=== PATIENT | male | born 1935 | race Caucasian/White ===

== ENCOUNTER 2017-01-07 14:00 | Inpatient (IN) | payer MEDICARE, OTHER ==
[~2017-01-07] VITALS: Ht 182.9 cm; Wt 96.3 kg
--- NOTE | ~2017-01-07 | DS ---
PATIENT'S NAME: SIMONE MAURO [facility] AGE: 81 Y [address] ROOM: [address] [place] [id number] LOCATION: GPCU ADMIT DATE: 01/09/2017 Discharge Summary DISCHARGE DATE: 01/27/2017 FAMILY PHYSICIAN: Anupam Cornejo PA-C ATTENDING PHYSICIAN: Montana Pederson HOSPITAL COURSE: The patient is an 81-year-old white male with recurrent right pleural effusion, status post multiple thoracentesis. He was sent to see Dr. Pederson in consultation by his primary care provider, Anupam Caruso, as well as his cadd instructor, Dr. Alston. The past cytology from the thoracentesis revealed no malignancy and showed the fluid to be of an exudative nature. The patient's history is for previous pulmonary emboli for which he is on anticoagulation and 2 recent bouts of pneumonia. The patient was evaluated in consultation for a possible pleurodesis. On 01/09/2017, the patient presented to the operative suite for a right thoracoscopy with a talc pleurodesis performed by Dr. Pederson. A chest tube was placed at the time of the surgical procedure and the patient transferred to the Progressive Care Floor following a short-stay in the PACU. Following day, the patient's chest tube was placed to water-seal as there was no air leak. His pain was controlled. He did develop an elevated white blood cell count, which is marked and therefore was initiated on an empiric antibiotic therapy, but 1st undergoing blood cultures x2, a UA and chest x-ray to investigate if there was no evidence of an active infection. The patient did improve overtime with the initiation of the antibiotic therapy and the white blood cell count did go back to normal. The patient also exhibited some mental status changes with some agitation and nonparticipatory behaviors. The patient worked with PT/OT; and also, with Speech Therapy. His progress was slow. He was started on some Risperdal. This dose was titrated as appropriate. The patient's head did start clearing quite a bit and he began doing things for himself, ambulating, and holding proper conversation. His calcium level however started bumping up and did reach a level of 13.1 on January 15. This level was repeated for accuracy and when found to be accurate we began a workup per the hypercalcemia protocol. A metastatic bone survey was also performed. This was negative. The patient was initiated on zoledronic acid IV to help decrease the calcium level. Over a couple of days, this decreased, and he was started on vitamin D3 800 units p.o. daily. His chest tube was placed to water-seal as the chest x-ray revealed no further pneumothorax. It was discontinued when the fluid levels were amenable. The patient had no pneumothorax noted on his final chest x-ray after the discontinuation of the chest tube. The patient and worked with [facility] for transfer upon his discharge. He will be under the care of his primary care provider, Anupam Caruso. The final workup for his hypercalcemia is not complete at the time of his discharge, but there is concerns for multiple myeloma versus humoral hypercalcemia of malignancy. PATIENT'S NAME: SIMONE MAURO [facility] AGE: 81 Y [address] ROOM: [place] [address] [facility] ADMIT DATE: 01/09/2017 Discharge Summary DISCHARGE DATE: 01/27/2017 FAMILY PHYSICIAN: Anupam Cornejo PA-C ATTENDING PHYSICIAN: Montana Pederson When the final results are back, we will contact Anupam Caruso with the information. The patient will likely need further workup from an Oncology perspective. The patient and verbalized understanding of this. Discharge was accomplished on January 27, 2017. The patient was to be admitted to the [facility]. ADMISSION DIAGNOSIS: Deconditioning, secondary to a right thoracoscopy with a talc pleurodesis, performed on 01/09/2017. SECONDARY DIAGNOSES: Include: 1. Hypercalcemia with unknown etiology with pending workup. 2. Postoperative confusion. 3. Hypertension. 4. Dyslipidemia. 5. Recurrent pleural effusion with negative biopsy and cytology. 6. History of pulmonary embolus. 7. Renal failure with chronic kidney disease, stage 3. FOLLOW UP: The patient will follow with his primary provider, Anupam Caruso, while in the [facility]. He is to follow up with Dr. Alston in [place] in January. He is to see Dr. Pederson in 2 weeks with a chest x-ray, PA and lateral. DISCHARGE INSTRUCTIONS: He is to have a regular diet of regular texture. He is full weightbearing status with no pulling, pushing, or lifting heavier than 5 pounds with the right upper extremity for an additional 2 weeks. He is to work with PT, OT. There will be no dressing changes required. TRANSFER MEDICATIONS: Include: 1. Aspirin 81 mg daily. 2. Lipitor 40 mg daily. 3. Carvedilol 3.125 mg b.i.d. 4. Vitamin D 800 units daily. 5. Colace 100 mg twice a day. 6. Pepcid 20 mg daily. 7. TriCor 160 mg p.o. daily. 8. Levaquin 750 mg for 5 additional doses. 9. Fish oil 1000 mg p.o. b.i.d. 10. Polyethylene glycol 17 g daily. 11. Metamucil 1 capsule daily. 12. Risperdal 0.125 mg p.o. twice a day. 13. Xarelto 15 mg daily. 14. Acetaminophen 650 mg q.4 h. p.r.n. for mild pain and temp of 101.5. 15. Dulcolax suppositories 10 mg p.r.n. constipation per rectum. PATIENT'S NAME: SIMONE MAURO [facility] AGE: 81 Y [address] ROOM: [place] [address] [facility] ADMIT DATE: 01/09/2017 Discharge Summary DISCHARGE DATE: 01/27/2017 FAMILY PHYSICIAN: Anupam Cornejo PA-C ATTENDING PHYSICIAN: Montana Pederson 16. Milk of mag 30 mL daily/p.r.n. constipation. The patient and verbalized understanding of the discharge orders. Again, we will be in contact with Anupam Caruso at the conclusion of the hypercalcemia workup for further instruction and referral. ROSEANNA DUGAN APRN FOR MONTNAA PEDERSON DO DLQ/modl /[id number] d: 02/12/17 0527 t: 02/12/17 1132, DISCHARGE SUMMARY
--- NOTE | ~2017-01-07 | OR ---
PATIENT'S NAME: ZUNILDA SIMONE E [facility] AGE: 81 Y [address] ROOM: [address] [address] LOCATION: GPCU ADMIT DATE: 01/09/2017 OR/Procedure Report DISCHARGE DATE: FAMILY PHYSICIAN: Anupam Cornejo PA-C ATTENDING PHYSICIAN: Montana Knight SURGEON: Montana Knight DO EQUIPMENT COORDINATOR: DATE OF PROCEDURE: 01/09/2017 PREOPERATIVE DIAGNOSIS: Recurrent right pleural effusion, status post multiple thoracenteses. POSTOPERATIVE DIAGNOSIS: Recurrent right pleural effusion, status post multiple thoracenteses. PROCEDURE: 1. Right thoracoscopy with drainage of right pleural effusion. 2. Limited decortication, right lower lobe. 3. Talc pleurodesis. BRIEF HISTORY: Mr. Mauro is an 81-year-old white male with the above-noted diagnosis. He has been brought to the operative suite today after informed consent was obtained. The patient was intubated with a dual-lumen endotracheal tube and placed in the lateral decubitus position for right thoracoscopy. An incision was created approximately 3 fingerbreadths below the scapular tip in between the mid and anterior axillary line. We entered the pleural space under direct vision. Finger sweep yielded loose gelatinous- type adhesions. Suction catheter was placed, approximately 500 mL of serous fluid was evacuated and a thoracoscope was placed. Diffuse inflammatory changes with gelatinous material, fluid, and loose adhesions were noted. Two accessory incisions were created anterior and posteriorly and under fluoroscopic guidance, instrumentation was placed; and through these 3 ports, we evacuated the majority of the fluid along with decorticating the gelatinous material and breaking up the loose adhesions. We then instilled 4 g of aerosolized talc into the pleural space and placed two 19-Albanian Markus drains through our anterior accessory incision and our original port incision and this was done under thoracoscopic guidance. With the scope in the lateral port, a chest tube was secured to the chest wall with 0 silk and the 2 port incisions were approximated with 0 Prolene. We then closed the last port incision laterally with 0 silk and 4-0 Monocryl. Ventilations were initiated. The patient was extubated and transferred to the recovery room in stable condition. PATIENT'S NAME: SIMONE MAURO [facility] AGE: 81 Y [address] ROOM: [address] [address] LOCATION: [facility] ADMIT DATE: 01/09/2017 OR/Procedure Report DISCHARGE DATE: FAMILY PHYSICIAN: Anupam Cornejo PA-C ATTENDING PHYSICIAN: Montana Knight DO SHUN JENNINGS/mariam /[id number] P d: 01/15/172032 t: 01/16/17 0841, OPERATIVE SUMMARY
[~2017-01-07 14:00] MED LIST: ASPIRIN LO-DOSE81 MG PO; CITRACAL + D E1 EACH PO; COREG 3.1253.125 MG PO; DAILY FIBER0.52 GM PO; DELTASONE10 MG PO; FISH OIL 1,2001 EAC1 PO; LIPITOR40 MG PO; MULTI VITAMIN1 EACH PO; STOOL SOFTENER100 M1 PO; TRICOR 160 MG160 MG PO; XARELTO15 MG PO
[2017-01-09 11:10] LABS: HEMATOCRIT 33.3 % (33.0-50.0); HEMOGLOBIN 10.3 g/dL (11.0-16.0); MCHC 30.9 gm/dL (32.0-36.5); MCV 87.2 fl (83.0-98.0); MPV 9.3 fl (9.4-12.4); RBC 3.82 M/uL (3.50-5.50); RDW-CV 15.8 % (11.9-14.6); WBC 13.8 K/uL (4.0-11.0)
[2017-01-09 11:14] LABS: INR - (THERAPEUTIC) 1.08 (0.92-1.07); PROTIME 11.3 SECONDS (9.8-11.4)
[2017-01-09 11:21] LABS: ALBUMIN 2.4 gm/dL (3.5-5.0); ANION GAP 10.3 (10.0-19.0); CALCIUM 10.3 mg/dL (8.5-10.5); CREATININE 1.3 mg/dL (0.6-1.3); PHOSPHORUS 2.6 mg/dL (2.5-4.9); POTASSIUM 4.3 mMol/L (3.7-5.1)
--- NOTE | 2017-01-10 01:11 | NUR ---
PATIENT ARRIVED TO U 1912 FROM PACU VIA TRANSPORT AND RN. A/0X3. [place]. AFEBRILE. HR 79. 136/64. 96% ON 2L. DENIES PAIN. IV R) HAND HAS FLUIDS RUNNING AT 50 ML/H. CT X2 TO R) SIDE. DRESSING C/D/I. IN ROOM WITH PATIENT.
[2017-01-10 04:02] LABS: BASOPHIL % 0.1 %; EOSINOPHIL # 0.1 K/uL (0.0-0.5); EOSINOPHIL % 0.7 %; HEMATOCRIT 32.1 % (33.0-50.0); HEMOGLOBIN 9.8 g/dL (11.0-16.0); IMMATURE GRANULOCYTE # 0.1 K/uL (0.0-0.3); IMMATURE GRANULOCYTE % 0.5 %; LYMPHOCYTE # 1.7 K/uL (0.8-4.0); LYMPHOCYTE % 11.5 %; MCH 26.6 pg (27.0-34.0); MCHC 30.5 gm/dL (32.0-36.5); MCV 87.2 fl (83.0-98.0); MONOCYTE # 1.2 K/uL (0.0-1.0); MONOCYTE % 8.6 %; MPV 9.1 fl (9.4-12.4); NEUTROPHIL # (ANC) 11.3 K/uL (1.4-9.0); NEUTROPHIL % 78.6 %; NRBC % 0 /100WBC (0-0.00); PLATELET COUNT 217 K/uL (150-450); RBC 3.68 M/uL (3.50-5.50); RDW-CV 15.8 % (11.9-14.6); WBC 14.3 K/uL (4.0-11.0)
[2017-01-10 04:18] LABS: ANION GAP 13.2 (10.0-19.0); CALCIUM 9.9 mg/dL (8.5-10.5); CREATININE 1.2 mg/dL (0.6-1.3); PHOSPHORUS 3.3 mg/dL (2.5-4.9); POTASSIUM 4.2 mMol/L (3.7-5.1)
--- NOTE | 2017-01-10 07:04 | NUR ---
Significant Event: A/0X3. [place]. RESTED IN BED ALL OF SHIFT. TURNED Q 2 HRS SIDE TO SIDE. AFEBRILE. VSS ON 1L. TRIED TO WEAN TO RA BUT WAS 87-88 WHILE SLEEPING. IV TO R) HAND WITH 5% DEXTROSE 1/2 NS RUNNING AT 50 ML/H. GAVE DOSE OF IV VANCO. GAVE MORPHINE X1 AND NORCO X2. PATIENT WAS ABLE TO FIND RELIEF AND REST COMFORTABLY THROUGHOUT THE NIGHT. CT X2 TO R) LATERAL SIDE WITH 270 MLS OF SEROSANGUINEOUS DRAINAGE OUT. DRESSING C/D/I. HOOKED TO -20 CM SUCTION. NO CREPITUS OR BUBBLING NOTED. VOIDED 750 MLS. NO BM THIS SHIFT. Follow up: CONTINUE WITH PLAN OF CARE.
--- NOTE | 2017-01-10 16:17 | NUR ---
Significant Event: VSS AND WEANED TO RA. AFEBRILE. 1 TAB NORCO AT [address] SITE PAIN, WITH RELIEF. WAS MORE DROWSY THIS AM, MORE ALERT THIS AFTERNOON; RESTED WELL T/O SHIFT. AMBULATES X2 LAPS IN RANGEL WITH RN. VOIDS WITH ADEQUATE UOP. ZOFRAN X1 WITH CRACKERS AND SPRITE THIS AM FOR NAUSEA, WITH RELIEF. CT TO SUCTION WITH 320 MLS SEROSANGUINOUS DRAINAGE OUT; DRESSING REMAINS C/D/I. IV SALINE LOCKED AND IS TAKING PO WELL, NOT MUCH OF AN APPETITE. AT BEDSIDE AND VERY SUPPORTIVE OF CARES. UP TO RECLINER FOR MOST OF THE DAY AND REPOSITIONED Q2H/PRN. Follow up: CONTINUE PLAN OF CARE.
--- NOTE | 2017-01-11 06:41 | NUR ---
Significant Event: A/0X3. IN ROOM WITH PATIENT.UP IN CHAIR SOME OF THE SHIFT. WALKED HALLS X1. DID GREAT. AFEBRILE. VSS ON RA. 1L OF 02 AT HS. PATIENT BREATHS SHALLOW. SATS 87-88 WHILE SLEEPING. IV TO R) HAND SL. VOIDS FINE PER URINAL. HAD 750 MLS OUT. MOM GIVEN THIS SHIFT. STILL NO BM. CT TO SUCTION HAD 210 ML SEROSANGUINEOUS DRAINAGE OUT. DRESSING C/D/I. NO CREPITUS OR BUBBLING NOTED. Follow up: CONTINUE WITH PLAN OF CARE.
--- NOTE | 2017-01-11 17:22 | NUR ---
Significant Event: VSS AND RA. 1 TAB NORCO THIS AM AND AFTERNOON WITH ADEQUATE PAIN CONTROL. CT TO SUCTION WITH 150 MLS SEROSANGUINOUS DRAINAGE OUT; DR. PEDERSON CHANGED THE DRESSING AND IT REMAINS C/D/I TO CT SITE. UPPER RT)BACK DRESSING REMOVED BY MD AND INCISION IS APPROXIMATED WITHOUT DRAINAGE. VOIDS WITH ADEQUATE UOP. PRUNE JUICE GIVEN PER REQUEST, PASSES GAS AND GOOD BS. APPETITE MUCH IMPROVED TODAY. AMBULATES RANGEL 2 LAPS X2. AT BEDSIDE AND VERY SUPPORTIVE OF CARES. Follow up: CONTINUE PLAN OF CARE; 2 VIEW CHEST XRAY IN THE AM.
[2017-01-12 03:44] LABS: BASOPHIL % 0.2 %; EOSINOPHIL # 0.4 K/uL (0.0-0.5); EOSINOPHIL % 3.4 %; HEMATOCRIT 32.2 % (33.0-50.0); IMMATURE GRANULOCYTE # 0.1 K/uL (0.0-0.3); IMMATURE GRANULOCYTE % 0.7 %; LYMPHOCYTE # 1.5 K/uL (0.8-4.0); LYMPHOCYTE % 13.9 %; MCH 26.7 pg (27.0-34.0); MCHC 31.1 gm/dL (32.0-36.5); MCV 85.9 fl (83.0-98.0); MONOCYTE # 1.1 K/uL (0.0-1.0); MONOCYTE % 9.8 %; NRBC % 0 /100WBC (0-0.00); PLATELET COUNT 229 K/uL (150-450); RBC 3.75 M/uL (3.50-5.50); RDW-CV 15.4 % (11.9-14.6)
[2017-01-12 04:04] LABS: ANION GAP 10.1 (10.0-19.0); CREATININE 1.4 mg/dL (0.6-1.3); PHOSPHORUS 2.4 mg/dL (2.5-4.9); POTASSIUM 4.1 mMol/L (3.7-5.1)
[2017-01-12 04:06] LABS: ALBUMIN 1.8 gm/dL (3.5-5.0); CALCIUM 11.3 mg/dL (8.5-10.5)
--- NOTE | 2017-01-12 05:06 | NUR ---
Significant Event: A/0X3. [place]. IN ROOM WITH PATIENT AND HELPS WITH CARES. AFEBRILE. VSS ON RA. 1L OF 02 A HS WHEN SLEEPING, NORCO X1 AND MORPHINE X1. PATIENT WAS ABLE TO FIND RELIEF AND REST COMFORTABLY THROUGHOUT THE NIGHT. IV TO R) HAND SL. CT TO SUCTION HAD 60 MLS OF SEROSANGUINEOUS DRAINAGE OUT. DRESSING C/D/I. R) LATERAL BACK OPEN TO AIR. CLOSED. EDGES APPROXIMATED AND HEALING WELL. VOIDS FINE. MOM GIVEN AGAIN THIS EVENING. NO BM. ACTIVE BOWEL SOUNDS AND PASSING MORE GAS. Follow up: CONTINUE WITH PLAN OF CARE.
--- NOTE | 2017-01-12 12:54 | NUR ---
Introduced self and care management services to patient and at bedside. Lives in [place]. They plan on him going home on discharge whenever he can get his chest tube out. Denies concerns about him going home, denies needs. will assist at home as needed. Medical Office Rep will follow and assist with dc planning as needs identified.
--- NOTE | 2017-01-12 17:31 | NUR ---
Significant Event: VSS ON RA DURING DAY. CT CONTINUES TO RIGHT LATERAL CHEST WITH -20CM SUCTION WITH 130ML SEROSANG DRAINAGE. DRESSING CHANGED THIS MORNING D/T SATURATION. GAUZE AND SILK TAPE NOW C/D/I. 1 TAB NORCO GIVEN EARLY THIS AM AROUND 0715 WITH RELIEF AND CONTROLLED PAIN ALL SHIFT. MULTIPLE ATTEMPTS TO HAVE BM TODAY AFTER STARTING MIRALAX DAILY WITHOUT SUCCESS. DULCOLAX SUPP GIVEN THIS AFTERNOON WITH BM REPORTED PER PATIENT AND . PIV TO R) HAND SL'D. VOIDS PER URINAL. SBA OR FAMILY ASSIST TO BATHROOM. AMBULATE IN [place] TODAY WITH CARDIAC REHAB. Follow up: CONT TO MONITOR CT OUTPUT AND PAIN CONTROL.
--- NOTE | 2017-01-13 04:46 | NUR ---
Significant Event: PATIENT WAS A/0 X 3 BUT HAS BECOME VERY CONFUSED DURING THE EVENING. STATED THIS IS HIS NORM. VERY RESTLESS MOST OF THE EVENING. HAS BEEN AT BEDSIDE ENTIRE SHIFT AND HELPS WITH CARES. VSS ON 2L 02, AFEBRILE. CHEST TUBE HAD 100 ML OUTPUT. CONTAINER HAS 130 ML LEFT BEFORE NEEDS CHANGED. POSSIBLE D/C OF CHEST TUBE TODAY SO IT HAS NOT BEEN CHANGE SO THE PATIENT WILL NOT GET CHARGED FOR ANOTHER IF HE DOES NOT NEED IT. ALL WOUND CULTURES HAVE COME BACK NEGATIVE. 2 NORCO GIVEN X 1 AT 2110, 2 MG MORPHINE GIVEN X 1 AT 2300. Follow up:
--- NOTE | 2017-01-13 16:03 | NUR ---
Significant Event: Disoriented to time and extremely forgetful. VSS on room air. R) chest tube had 55ml out this shift of serosanginous drainage. Dressing and canister changvjoe. Up with family assist. educated about gaitbelt and walker usage for transfers. Ecouraged to call for help when patient is unsteady. No complaints of pain or SOB.
--- NOTE | 2017-01-14 04:51 | NUR ---
Significant Event: PATIENT ORIENTED ONLY TO SELF. VSS ON RA, AFEBRILE. HE HAD BEEN VERY AGITATED AND RESTLESS FOR THE FIRST HALF OF THE SHIFT. REQUIRED VERY FREQUENT OBSERVATION. PULLS AT CORDS AND TRIES TO GET OUT OF BED. GOT ANOTHER 1 TIME DOSE OF ZYPREXA 5 MG. HE FELL ASLEEP AROUND 2300 AND HAS BEEN SLEEPING MOST OF THE TIME. DOES IMMEDIATELY TRY TO PULL CORDS IF HE WAKES UP. HAS BECOME INCONT OF URINE. HAS BEEN AT BEDSIDE ENTIRE SHIFT. CHEST TUBE DRESSING REINFORCED. HAD 55 ML CHEST TUBE OUTPUT. Follow up:
--- NOTE | 2017-01-14 11:27 | NUR ---
A - NUTRITION FOLLOW-UP. PT ASLEEP DURING VISIT, IN ROOM. MUMBLED SPEECH. LABS: CREA 1.4, ALB 1.8, PO4 2.4. MEDS: XARELTO. DIET: REGULAR W/ ENSURE ENLIVE 1X/DAY. INTAKE 64% X7 MEALS. PT WAS EATING 50-100% UNTIL YESTERDAY, REF-BITES X2 MEALS. REPORTED PT HAD A 'SPELLED' YESTERDAY. ATE BREAKFAST TRAY THIS AM BUT DID REPORT THIS IS THE ONLY TIME SHE DID THAT. TRYING TO GIVE PT ENSURE ENLIVE LATER. ENCOURAGED PO INTAKE, PT NODDED. EST NEEDS: [id number] KCAL, 101-120 GRAMS PROTEIN, FLUID NEEDS: 1ML/KCAL D - INADEQUATE ORAL INTAKE RELATED TO ALTERATION IN APPETITE EVIDENCED BY PO 64% X7 MEALS. I - WILL INCREASE ENSURE ENLIVE TO BID. M/E - GOAL: PT WILL BE ABLE TO TOLERATE >70% OF MEALS AND AT LEAST ONE ORAL SUPPLEMENT PER DAY IN 4-6 DAYS.
--- NOTE | 2017-01-14 18:29 | NUR ---
Significant Event: PATIENT SLEPT WELL AT TIMES TODAY. OTHER TIMES, RESTLESS AND AGITATED ESPECIALLY WHILE SITTING IN CHAIR. RISPERDAL INITIATED TID TODAY WITH PATIENT MORE ALERT AT SUPPER, EATING AND ANSWERING SIMPLE YES/NO QUESTIONS. TAKES PILL WITH SIPS FROM CUP. TRANSFERED TO CHAIR 1-2PA WITH WALKER AND GAIT BELT. INCONTINENT URINE. NO BM TODAY. PIV TO RIGHT ANTERIOR FA SL'D. WITH PATIENT RESTING ON/OFF, O2 KEPT AT 1L/NC WITH CT CHNAGED TO WATER SEAL WITH 70ML SEROUS DRAINAGE. REINFORCED DRESSING TO RIGHT CHEST. Follow up: XRAY IN AM AND LABS. CONT TO MONITOR. EXIT ALARMS ON AT ALL TIMES.
--- NOTE | 2017-01-14 23:46 | NUR ---
is at bedside, states that she would like all four side rails on bed up because she "never knows which side of the bed that he's going to kick his feet off of".
[2017-01-15 04:11] LABS: BASOPHIL % 0.2 %; EOSINOPHIL # 0.1 K/uL (0.0-0.5); EOSINOPHIL % 0.8 %; HEMATOCRIT 32.6 % (33.0-50.0); IMMATURE GRANULOCYTE # 0.1 K/uL (0.0-0.3); IMMATURE GRANULOCYTE % 0.7 %; LYMPHOCYTE % 15.3 %; MCH 26.5 pg (27.0-34.0); MCHC 30.7 gm/dL (32.0-36.5); MCV 86.5 fl (83.0-98.0); MONOCYTE # 1.3 K/uL (0.0-1.0); MONOCYTE % 10.4 %; MPV 9.6 fl (9.4-12.4); NEUTROPHIL # (ANC) 9.3 K/uL (1.4-9.0); NEUTROPHIL % 72.6 %; NRBC % 0 /100WBC (0-0.00); PLATELET COUNT 265 K/uL (150-450); RBC 3.77 M/uL (3.50-5.50); RDW-CV 15.5 % (11.9-14.6); WBC 12.8 K/uL (4.0-11.0)
[2017-01-15 04:30] LABS: ANION GAP 11.3 (10.0-19.0); CREATININE 1.7 mg/dL (0.6-1.3); POTASSIUM 4.3 mMol/L (3.7-5.1); TOTAL BILIRUBIN 0.6 mg/dL (0.0-1.5); TOTAL PROTEIN 6.8 g/dL (6.0-8.4)
[2017-01-15 04:36] LABS: ALBUMIN 1.8 gm/dL (3.5-5.0); CALCIUM 13.1 mg/dL (8.5-10.5)
--- NOTE | 2017-01-15 05:12 | NUR ---
Patient continues being restless. Will pick and pull at tubes and lines. is at bedside. Incontinent of urine x 2 this shift. Chest tubes to right side are to water seal. 40ml out this shift. Critical Calcium this morning of 13.1. Dr. Knight contacted and gave an order for a repeat draw. Patient on 1 ltr via nasal cannula. Patient able to turn himself- prefers to lay on right side, we did turn him to his left, but he turns himself back over to the right. IV to right inner FA SL.
[2017-01-15 05:45] LABS: ANION GAP 10.2 (10.0-19.0); CREATININE 1.7 mg/dL (0.6-1.3); POTASSIUM 4.2 mMol/L (3.7-5.1)
[2017-01-15 05:56] LABS: ALBUMIN 1.8 gm/dL (3.5-5.0); TOTAL BILIRUBIN 0.9 mg/dL (0.0-1.5)
[2017-01-15 12:23] LABS: ANION GAP 10.2 (10.0-19.0); CREATININE 1.8 mg/dL (0.6-1.3); PHOSPHORUS 2.6 mg/dL (2.5-4.9); POTASSIUM 4.2 mMol/L (3.7-5.1)
[2017-01-15 12:28] LABS: ALBUMIN 1.8 gm/dL (3.5-5.0); CALCIUM 12.6 mg/dL (8.5-10.5)
--- NOTE | 2017-01-15 14:35 | NUR ---
Introduced self and purpose of heart healthy education. Calendar given, information reviewed, verbalized understanding.
[2017-01-15 16:37] LABS: ANION GAP 9.2 (10.0-19.0); CREATININE 1.8 mg/dL (0.6-1.3); PHOSPHORUS 2.5 mg/dL (2.5-4.9); POTASSIUM 4.2 mMol/L (3.7-5.1)
[2017-01-15 16:40] LABS: ALBUMIN 1.8 gm/dL (3.5-5.0)
--- NOTE | 2017-01-15 17:05 | NUR ---
Significant Event: VSS WITH O2 WEANED TO RA EVEN WHILE SLEEPING SATS >90%. DIMINISHED LUNG SOUNDS TO RIGHT SIDE. CT INITIALLY TO H2O SEAL THEN ORDER TO CONNECT TO -20CM SUCTION UNTIL MN THEN BACK TO H20 SEAL. POSSIBLE D/C OF CT TOMORROW. CONTINUES TO CONFUSED WITH IDEA HE IS AT WORK AND RESTLESS AT TIMES WITH VISUAL HALLUCINATIONS. WALKED IN RANG[place] WITH CARDIAC REHAB AND PT X2 TODAY WITH WALKER AND GAIT BELT. FOR CRITICAL CALCIUM THIS AM, LITER X1 OF NS GIVEN OVER 5 HOURS WITH CURRENT RATE AT 100ML/HR FOR TOTAL OF 2 LITERS. RECHECK RENAL PANEL AT 1600 WITH CA 12.0. INCONTINENT OF URINE AND BM X2. Follow up: CONT TO MONITOR. EXIT ALARMS ON AT ALL TIMES. AT BEDSIDE AND RN TALKED TO SON ABOUT GIVING BREAK.
--- NOTE | 2017-01-16 05:11 | NUR ---
Significant Event:Patient disoriented to time/place. Visual hallucinations at times. VSS on RA. Sleep apnea noted. CT placed from suction to waterseal. 60ml output from CT serous drainage. 4 bed rales up per family request. Incont of urine. Bed and Chair alarms at all times. Son is suppose to come today to relieve so she can get some rest. Follow up:Plan is to pull chest tube today. Continue to monitor confusion.
[2017-01-16 09:10] LABS: ANION GAP 10.1 (10.0-19.0); CREATININE 1.9 mg/dL (0.6-1.3); PHOSPHORUS 2.8 mg/dL (2.5-4.9); POTASSIUM 4.1 mMol/L (3.7-5.1)
[2017-01-16 09:13] LABS: ALBUMIN 1.8 gm/dL (3.5-5.0); CALCIUM 13.1 mg/dL (8.5-10.5)
[2017-01-16 17:43] LABS: ALBUMIN 2.4 gm/dL (3.5-5.0); ANION GAP 10.2 (10.0-19.0); CREATININE 1.9 mg/dL (0.6-1.3); PHOSPHORUS 2.6 mg/dL (2.5-4.9); POTASSIUM 4.2 mMol/L (3.7-5.1)
[2017-01-16 17:46] LABS: CALCIUM 12.2 mg/dL (8.5-10.5)
--- NOTE | 2017-01-16 19:32 | NUR ---
Significant Event:Oriented to self only, visual and auditory hallucinations. 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 reports this is his normal at home. Risperadal given as scheduled. Follows commands impulsive, attempts to get out of bed, despite bed alarm. is 1:1 with patient. Stands with gait belt, walker and 1-2 assist, walked in the [place] with physical therapy. Up to the chair, but tries to slide out, so not safe to sit for long. SBP 80's to 140's. IV Albumin given x 1, then Bumex IV after. Remains > 90% on room air. Chest tube to sx had 30 ml serous drainage out this shift, Chest xray to check placment. Critical serum Calcium, Ionized Calcium drawn, then Calcitonin given, order for Zoledonic Acid held D/T kidney function. Inc of urine. Inc of 2 Large soft formed BM's. Coughs when taking meds, speech therapy here to evaluated swallow. Recommend crush meds and give with pudding or applesauce. feeds patient, good appetite. No pain reported. SL to R) FA. Follow up:Safety, bed and chair alarm.
--- NOTE | 2017-01-17 07:12 | NUR ---
Significant Event: Alert to self/birthday, speech is very mumbled, VSS on RA, afebrile, chest tube dressing C.D.I, reinforced with tape, 20 ml output, patient remains impulsive and having visual hallucinations, incontinent of b+b, this am at 0500 patient had moment of clarity, stated name/birthday/hospital in [place]/ spoke clearly and in complete sentences/ denies pain, at bedside, pills crushed in pudding Follow up: continue plan of care
[2017-01-17 10:30] LABS: ALBUMIN 2.3 gm/dL (3.5-5.0); ANION GAP 11.8 (10.0-19.0); CREATININE 2.2 mg/dL (0.6-1.3); PHOSPHORUS 2.5 mg/dL (2.5-4.9); POTASSIUM 3.8 mMol/L (3.7-5.1)
[2017-01-17 10:35] LABS: CALCIUM 12.6 mg/dL (8.5-10.5)
--- NOTE | 2017-01-17 18:49 | NUR ---
Significant Event: D/O TO TIME AND PLACE MOST OF THE TIME, HAS TIMES OF CLARITY BUT BRIEF. @ BEDSIDE, HELPFUL WITH CARES. INCONTINENT OF BOWEL & BLADDER. IV TO RIGHT FA SL'D. UP WITH 2 ASSIST, GB AND WALKER. IMPULSIVE AT TIMES. PILL CRUSHED IN APPLESAUCE OR PUDDING. CT DC'D THIS AM. CHEST X-RAY IN AM. LABS IN AM. Follow up:
--- NOTE | 2017-01-18 05:56 | NUR ---
Significant Event: Alert to self, oriented more at times, patient less restless throughout night, VSS on RA, dressing to R)lateral CT site c.d.i, reinforced with tape, incontinent of urine, at bedside Follow up: continue plan of care
[2017-01-18 06:15] LABS: BASOPHIL % 0.1 %; EOSINOPHIL # 0.1 K/uL (0.0-0.5); EOSINOPHIL % 0.6 %; HEMATOCRIT 36.9 % (33.0-50.0); IMMATURE GRANULOCYTE # 0.1 K/uL (0.0-0.3); IMMATURE GRANULOCYTE % 0.9 %; LYMPHOCYTE # 1.9 K/uL (0.8-4.0); MCH 25.9 pg (27.0-34.0); MCHC 29.8 gm/dL (32.0-36.5); MONOCYTE # 1.2 K/uL (0.0-1.0); MONOCYTE % 7.6 %; MPV 9.4 fl (9.4-12.4); NEUTROPHIL # (ANC) 12.4 K/uL (1.4-9.0); NEUTROPHIL % 78.8 %; NRBC % 0 /100WBC (0-0.00); RBC 4.24 M/uL (3.50-5.50); RDW-CV 15.3 % (11.9-14.6); WBC 15.7 K/uL (4.0-11.0)
[2017-01-18 06:17] LABS: PLATELET COUNT 337 K/uL (150-450)
[2017-01-18 06:28] LABS: ALBUMIN 2.3 gm/dL (3.5-5.0); ANION GAP 11.1 (10.0-19.0); CREATININE 2.2 mg/dL (0.6-1.3); POTASSIUM 4.1 mMol/L (3.7-5.1)
[2017-01-18 06:31] LABS: CALCIUM 12.6 mg/dL (8.5-10.5); TOTAL BILIRUBIN 0.6 mg/dL (0.0-1.5)
--- NOTE | 2017-01-18 16:17 | NUR ---
Significant Event:Up in chair, showered. Denies pain. Confused to self, place time. Right side drsg changed. Inc of UA/BM. Needs to sit up straight to eat. Needs fed. VSS. at bedside. Had visitors. 1-2 assist with cues.
--- NOTE | 2017-01-19 05:49 | NUR ---
Significant Event: Knows self/birthday/family members, more alert, patient able to express toileting needs, using urinal more, assisting in self cares, VSS on RA, dressing to R)side dry/intact, reinforced with tape, impulsive, alarms on at all times, at bedside Follow up:
[2017-01-19 06:39] LABS: BASOPHIL % 0.1 %; EOSINOPHIL % 0.1 %; HEMATOCRIT 34.1 % (33.0-50.0); HEMOGLOBIN 10.2 g/dL (11.0-16.0); IMMATURE GRANULOCYTE # 0.2 K/uL (0.0-0.3); IMMATURE GRANULOCYTE % 0.7 %; LYMPHOCYTE # 1.7 K/uL (0.8-4.0); MCH 26.2 pg (27.0-34.0); MCHC 29.9 gm/dL (32.0-36.5); MCV 87.7 fl (83.0-98.0); MONOCYTE # 1.6 K/uL (0.0-1.0); MONOCYTE % 7.4 %; MPV 9.4 fl (9.4-12.4); NEUTROPHIL # (ANC) 18.1 K/uL (1.4-9.0); NEUTROPHIL % 83.7 %; NRBC % 0 /100WBC (0-0.00); PLATELET COUNT 326 K/uL (150-450); RBC 3.89 M/uL (3.50-5.50); RDW-CV 15.3 % (11.9-14.6)
[2017-01-19 06:42] LABS: WBC 21.7 K/uL (4.0-11.0)
[2017-01-19 06:50] LABS: ANION GAP 12.9 (10.0-19.0); PHOSPHORUS 2.4 mg/dL (2.5-4.9); POTASSIUM 3.9 mMol/L (3.7-5.1)
[2017-01-19 06:52] LABS: CALCIUM 11.6 mg/dL (8.5-10.5)
[2017-01-19 10:03] LABS: BILIRUBIN URINE NEGATIVE (NEGATIVE); BLOOD URINE 50 /UL (NEGATIVE); GLUCOSE URINE NEGATIVE (NEGATIVE); KETONE URINE NEGATIVE (NEGATIVE); LEUKOCYTES URINE NEGATIVE /UL (NEGATIVE); NITRITE URINE NEGATIVE (NEGATIVE); PROTEIN URINE 15 mg/dL (NEGATIVE); SPEC GRAVITY URINE 1.015 (1.003-1.035); UROBILINOGEN URINE NORMAL (NORMAL)
[2017-01-19 10:05] LABS: COLOR URINE YELLOW (YELLOW); TURBIDITY URINE CLEAR (CLEAR)
[2017-01-19 10:11] LABS: EPITHELIAL URINE RARE #/HPF (NEGATIVE); RBC URINE 0-2 #/HPF (NEGATIVE); WBC URINE 0-2 #/HPF (NEGATIVE)
[2017-01-19 10:12] LABS: BACTERIA URINE RARE (NEGATIVE)
--- NOTE | 2017-01-19 11:50 | NUR ---
PT MOVED TO NO RISK W/ INTAKE IMPROVED TO 100%. WILL CONT ENSURE TID TO MAINTAIN NUTRITION STATUS. WILL ASSIST NEEDED.
--- NOTE | 2017-01-19 12:51 | NUR ---
Introduced self and care management services to patient and at bedside. requests pt go to [facility] on discharge and plan out to [facility] after that. 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 Still on IV antibx, will start referral to [facility] and see if they can accept, I asked if she wants me to make referral to [place] if they can't for some reason and she said yes, so will see what [facility] says. STEPHAN Yeh is pt primary care provider in [place], per . Will start referral.
--- NOTE | 2017-01-19 16:06 | NUR ---
Significant Event: pt voids small urine, ua sent, bladder scan only showed 55ml post res. Pt helps pt with cares. No c/o pain. Pt confused but alert. Pt does sleep on/off today well. IV s.locked. Speech,PT OT Cardiac rehab in to see pt. Follow up:
--- NOTE | 2017-01-20 05:10 | NUR ---
Significant Event: Patient has been alert and frequently disoriented to time. He is very forgetful and impulsive. Has not used call light appropriately all night. Bed/chair alarm on at all times. has remained at bedside throughout the night and has been very helpful with cares. Vital signs are stable, continues on room air. Denies any pain/discomfort. Mechanical soft diet with meds crushed in applesauce. Follow up: Plan to dismiss to swingbed when ready.
[2017-01-20 05:37] LABS: BASOPHIL # 0.1 K/uL (0.0-0.2); BASOPHIL % 0.2 %; EOSINOPHIL # 0.3 K/uL (0.0-0.5); EOSINOPHIL % 1.2 %; HEMATOCRIT 33.4 % (33.0-50.0); HEMOGLOBIN 10.1 g/dL (11.0-16.0); IMMATURE GRANULOCYTE # 0.2 K/uL (0.0-0.3); IMMATURE GRANULOCYTE % 0.9 %; LYMPHOCYTE % 8.6 %; MCH 26.8 pg (27.0-34.0); MCHC 30.2 gm/dL (32.0-36.5); MCV 88.6 fl (83.0-98.0); MONOCYTE # 1.7 K/uL (0.0-1.0); MONOCYTE % 7.1 %; MPV 9.7 fl (9.4-12.4); NEUTROPHIL # (ANC) 19.4 K/uL (1.4-9.0); NRBC % 0 /100WBC (0-0.00); PLATELET COUNT 303 K/uL (150-450); RBC 3.77 M/uL (3.50-5.50); RDW-CV 15.2 % (11.9-14.6)
[2017-01-20 05:42] LABS: WBC 23.7 K/uL (4.0-11.0)
[2017-01-20 05:52] LABS: ANION GAP 12.7 (10.0-19.0); PHOSPHORUS 2.7 mg/dL (2.5-4.9); POTASSIUM 3.7 mMol/L (3.7-5.1)
[2017-01-20 05:56] LABS: ALBUMIN 1.9 gm/dL (3.5-5.0)
--- NOTE | 2017-01-20 09:33 | NUR ---
Called Chanelle, swingbed coordinator at [facility], she will look at information today and let me know today if they can accept when ready for discharge.
--- NOTE | 2017-01-20 16:00 | NUR ---
Significant Event: FORGETFUL, ORIENTATION STATUS CHANGES. IMPULSIVE AT TIMES, ESPECIALLY WHEN NEEDING TO VOID. INCONTINENT OF URINE BUT ALSO USES URINAL AT TIMES, BRIEF ON. FREQUENT VOIDING. PIV TO RIGHT POSTERIOR FA, COVERED WITH ANNMARIE KENNY. RIGHT CHEST SITES OPEN TO AIR. AT BEDSIDE, VERY HELPFUL WITH CARES. Follow up: CM WORKING ON PLACEMENT.
--- NOTE | 2017-01-20 16:52 | NUR ---
Chanelle from [facility] called and said they can accept to [facility] when ready for discharge for a short stay. Relayed to her that I talked with patient about Medicare coverage of skilled and may just be a short 1 week stay and either home or out to [place] self pay, is going to check long term care social worker care policy but voiced understanding. She is okay with that. Will update her tomorrow, not sure when pt ready for discharge. STEPHAN Magallanes is her primary care provider in [place].
[2017-01-21 04:11] LABS: BASOPHIL % 0.2 %; EOSINOPHIL # 0.4 K/uL (0.0-0.5); EOSINOPHIL % 2.4 %; HEMATOCRIT 31.6 % (33.0-50.0); HEMOGLOBIN 9.7 g/dL (11.0-16.0); IMMATURE GRANULOCYTE # 0.2 K/uL (0.0-0.3); IMMATURE GRANULOCYTE % 1.2 %; LYMPHOCYTE # 1.9 K/uL (0.8-4.0); LYMPHOCYTE % 10.4 %; MCH 26.3 pg (27.0-34.0); MCHC 30.7 gm/dL (32.0-36.5); MCV 85.6 fl (83.0-98.0); MONOCYTE # 1.4 K/uL (0.0-1.0); MONOCYTE % 7.8 %; MPV 9.8 fl (9.4-12.4); NEUTROPHIL # (ANC) 13.8 K/uL (1.4-9.0); NRBC % 0 /100WBC (0-0.00); PLATELET COUNT 270 K/uL (150-450); RBC 3.69 M/uL (3.50-5.50)
[2017-01-21 04:17] LABS: WBC 17.7 K/uL (4.0-11.0)
[2017-01-21 04:26] LABS: ANION GAP 10.7 (10.0-19.0); CREATININE 1.9 mg/dL (0.6-1.3); PHOSPHORUS 2.6 mg/dL (2.5-4.9); POTASSIUM 3.7 mMol/L (3.7-5.1)
[2017-01-21 04:29] LABS: ALBUMIN 1.9 gm/dL (3.5-5.0); CALCIUM 11.9 mg/dL (8.5-10.5)
--- NOTE | 2017-01-21 05:06 | NUR ---
Significant Event: Patient disoriented to date/time, continent of urine at times, VSS on RA, afebrile, denies pain, at bedside, sutures intact at chest tube site Follow up: awaiting placement
--- NOTE | 2017-01-21 11:27 | NUR ---
Reviewed chart and talked with Jamila Jacobs APRN and Dr Knight, waiting on labwork they sent off to come back, potentially ready for [facility], but possibly not depending on when lab gets back and what they need to do for patient from there. Called Chanelle at [facility] at [phone] and left her a voicemail that potential for dc to them on Thursday and we will update them tomorrow if we know more or I will update her on Thursday. leaving this afternoon to go home and then has doctor appt in [place] in am and will be back here tomorrow afternoon. [facility] will continue to follow.
--- NOTE | 2017-01-21 18:25 | NUR ---
Significant Event: VSS. ALERT, ORIENTED TO PERSON AND PLACE BUT FORGETFUL OF SITUATION AND TIME. IMPULSIVE. DOES NOT CALL FOR HELP. UP WITH 1 ASSIST, GB AND WALKER. AMBULATED IN HALLS X3 WITH PT/CR. INCONTINENT OF URINE, BRIEF ON. BM X2. PIV TO RIGHT POSTERIOR FA SL'D. DENIES PAIN. WENT HOME TONIGHT FOR DOCTOR APPOINTMENT IN AM AND WILL BE BACK TOMORROW AFTERNOON. Follow up: [facility] HAS ACCEPTED, AWAITING SEND OUT LAB RESULTS.
--- NOTE | 2017-01-22 04:30 | NUR ---
Significant Event: PT ASKING FOR EARLY IN SHIFT. THEN SEEMED TO REMEMBER THAT SHE WILL BE BACK TODAY. MOSTLY INCONTINENT OF URINE, PT IS IN A BRIEF. WALKED TO BATHROOM WHEN NEEDING CHANGED, AND THEN WILL ALSO VOID SOME ON TOLIET. DID HAVE BM LAST NIGHT. TOOK ALL MEDICATIONS WITH OUT DIFFICULITY. PT WANTING TO GO TO HIS PICKUP THIS AM. WAS ABLE TO REASON WITH PT TO STAY IN BED, AT IT WAS ONLY 2:30. PT RESTLESS WHEN NEEDING TO USE BATHROOM. AMBULTES WITH GAITBELT, WALKER AND 1 ASSIST. TOLERATES WELL. RECEIVED 650 TYLENOL X 1 FOR KNEE PAIN. SEEMED TO REST AFTER. Follow up: AWAITING LABS. CONT. TO WORK FOR PLACEMENT AT D/C. WILL BE BACK TODAY AFTER HER APPOINTMENT.
[2017-01-22 07:21] LABS: ANION GAP 12.7 (10.0-19.0); CREATININE 1.9 mg/dL (0.6-1.3); PHOSPHORUS 2.5 mg/dL (2.5-4.9); POTASSIUM 3.7 mMol/L (3.7-5.1)
[2017-01-22 07:22] LABS: ALBUMIN 1.9 gm/dL (3.5-5.0); CALCIUM 11.6 mg/dL (8.5-10.5)
[2017-01-22 14:43] LABS: BASOPHIL % 0.1 %; EOSINOPHIL # 0.3 K/uL (0.0-0.5); EOSINOPHIL % 1.9 %; HEMATOCRIT 31.8 % (33.0-50.0); HEMOGLOBIN 9.7 g/dL (11.0-16.0); IMMATURE GRANULOCYTE # 0.2 K/uL (0.0-0.3); IMMATURE GRANULOCYTE % 1.1 %; LYMPHOCYTE # 1.8 K/uL (0.8-4.0); LYMPHOCYTE % 11.9 %; MCH 26.1 pg (27.0-34.0); MCHC 30.5 gm/dL (32.0-36.5); MCV 85.5 fl (83.0-98.0); MONOCYTE # 1.5 K/uL (0.0-1.0); MONOCYTE % 10.2 %; MPV 10.1 fl (9.4-12.4); NEUTROPHIL # (ANC) 11.2 K/uL (1.4-9.0); NEUTROPHIL % 74.8 %; NRBC % 0 /100WBC (0-0.00); PLATELET COUNT 310 K/uL (150-450); RBC 3.72 M/uL (3.50-5.50); RDW-CV 15.1 % (11.9-14.6)
--- NOTE | 2017-01-22 17:36 | NUR ---
Significant event: Patient is alert and oriented to self and knows that he is in a hospital, forgets which one. Has been up in chair most of day, Worked with PT and Cardio therapy. One assist and walker, gait belt. Is occasionally incontinent, does void in toliet. in room and assists patient also. Held coreg due to low blood pressures. Iv to right forearm, is saline locked. Plans for [facility] when dismissed. Cooperative with cares.
--- NOTE | 2017-01-23 05:08 | NUR ---
Significant Event: PATIENT DISORIENTED TO TIME AND PLACE. HE HAS BECOME MORE DISORIENTED THE EVENING HAS PROGRESSED. THIS HAS BEEN HIS NORM OF LATE. VSS ON RA. HE HAS ATTEMPTED MULTIPLE TIMES TO GET OUT OF BED. HAS BEEN IN ROOM ALL EVENING. NO PAIN, JUST RESTLESS. Follow up: [facility] HAS ACCEPTED BUT NOT ABOUT TIMING OF DISCHARAGE.
[2017-01-23 06:04] LABS: BASOPHIL % 0.2 %; EOSINOPHIL # 0.1 K/uL (0.0-0.5); EOSINOPHIL % 0.5 %; HEMATOCRIT 32.2 % (33.0-50.0); HEMOGLOBIN 9.8 g/dL (11.0-16.0); IMMATURE GRANULOCYTE # 0.2 K/uL (0.0-0.3); LYMPHOCYTE # 1.8 K/uL (0.8-4.0); LYMPHOCYTE % 11.1 %; MCHC 30.4 gm/dL (32.0-36.5); MCV 85.4 fl (83.0-98.0); MONOCYTE # 1.5 K/uL (0.0-1.0); MONOCYTE % 9.3 %; MPV 9.4 fl (9.4-12.4); NEUTROPHIL # (ANC) 12.8 K/uL (1.4-9.0); NEUTROPHIL % 77.9 %; NRBC % 0 /100WBC (0-0.00); PLATELET COUNT 291 K/uL (150-450); RBC 3.77 M/uL (3.50-5.50)
[2017-01-23 06:07] LABS: WBC 16.4 K/uL (4.0-11.0)
[2017-01-23 06:16] LABS: ANION GAP 13.9 (10.0-19.0); CREATININE 1.7 mg/dL (0.6-1.3); POTASSIUM 3.9 mMol/L (3.7-5.1)
[2017-01-23 06:18] LABS: ALBUMIN 1.8 gm/dL (3.5-5.0); CALCIUM 11.3 mg/dL (8.5-10.5); PHOSPHORUS 1.8 mg/dL (2.5-4.9)
--- NOTE | 2017-01-23 12:12 | NUR ---
Reviewed chart and talked with patient nurse, not ready for dc today. Called [facility] and talked with swingbed coordinator Chanelle [phone] and let her know. Since Day is Thursday, they wouldn't accept until Thursday if ready for dc then.
--- NOTE | 2017-01-23 16:22 | NUR ---
Significant Event: ALERT BUT DROWSY, NOT ORIENTED TO TIME, FORGETFUL. PRESENT AT BEDSIDE. ALARMS ON AT ALL TIMES. 1 ASSIST, GAITBELT, WALKER. FREQUENT URINATION, INCONTINENT AT TIMES, BM THIS SHIFT. IV FLUIDS STARTED AT 40 ML/HR X1 LITER. VSS, AFEBRILE, ROOM AIR. MEDS CRUSHED IN APPLESAUCE. BONE SCAN NEGATIVE, AWAITING LABS SENT OUT. Follow up: [facility] BED ACCEPTED, TRANSFER THURSDAY?
--- NOTE | 2017-01-24 04:24 | NUR ---
Significant Event: Alert, disoriented to place and time. Mumbles and disoriented conversation. VSS on room air. NS at 40mls/hr, can be SL after liter is finished. Ambulated in halls before bed and patient slept well for 4hrs. Restless at times, at bedside. Encouraged to not put up all 4 side rails on bed and to call for help with transfers. Needs re-enforcement at times. Frequent small voids, more incontinent this shift as patient slept. Continue with plan of care. Follow up: D/C to [facility] bed on thursday.
[2017-01-24 08:07] LABS: BASOPHIL % 0.3 %; EOSINOPHIL # 0.2 K/uL (0.0-0.5); EOSINOPHIL % 1.5 %; HEMATOCRIT 30.1 % (33.0-50.0); HEMOGLOBIN 9.3 g/dL (11.0-16.0); IMMATURE GRANULOCYTE # 0.2 K/uL (0.0-0.3); IMMATURE GRANULOCYTE % 1.5 %; LYMPHOCYTE # 1.8 K/uL (0.8-4.0); LYMPHOCYTE % 12.6 %; MCH 25.9 pg (27.0-34.0); MCHC 30.9 gm/dL (32.0-36.5); MCV 83.8 fl (83.0-98.0); MONOCYTE # 1.2 K/uL (0.0-1.0); MONOCYTE % 8.4 %; MPV 9.7 fl (9.4-12.4); NEUTROPHIL # (ANC) 10.9 K/uL (1.4-9.0); NEUTROPHIL % 75.7 %; NRBC % 0 /100WBC (0-0.00); PLATELET COUNT 299 K/uL (150-450); RBC 3.59 M/uL (3.50-5.50); RDW-CV 15.2 % (11.9-14.6); WBC 14.3 K/uL (4.0-11.0)
[2017-01-24 08:25] LABS: ANION GAP 13.9 (10.0-19.0); CALCIUM 10.4 mg/dL (8.5-10.5); CREATININE 1.6 mg/dL (0.6-1.3); POTASSIUM 3.9 mMol/L (3.7-5.1); TOTAL BILIRUBIN 0.5 mg/dL (0.0-1.5); TOTAL PROTEIN 6.4 g/dL (6.0-8.4)
[2017-01-24 08:31] LABS: ALBUMIN 1.7 gm/dL (3.5-5.0)
--- NOTE | 2017-01-24 15:19 | NUR ---
Significant Event: Alert but drowsy, oriented x3 but forgetful. Ambulated in halls, 1 assist walker gaitbelt. present at bedside. VSS, afebrile, room air. Acetaminophen given for back pain. Meds crushed with applesauce. Follow up: 2 view chest xray in AM. [facility] swing [facility] Thursday
[2017-01-25 05:12] LABS: CALCIUM 9.6 mg/dL (8.5-10.5); CREATININE 1.9 mg/dL (0.6-1.3)
[2017-01-25 05:13] LABS: ALBUMIN 1.8 gm/dL (3.5-5.0); ANION GAP 13.4 (10.0-19.0); PHOSPHORUS 1.6 mg/dL (2.5-4.9); POTASSIUM 4.4 mMol/L (3.7-5.1)
--- NOTE | 2017-01-25 05:47 | NUR ---
Significant Event: Patient disoriented to place and month. Oriented to person and year. Frequently talks about situations that are not happening and people that are not in the room. SBP 95-125. HR 90s-100s. All other vital signs stable. On RA. Patient slept 5 hours straight. Then off and on throughout the night. remains at bedside. Ambulated halls x1. Patient restless and continuously tries to get out of bed when awake. Cooperative with cares. needs reminders to call nurse for help with patient. Follow up: Chest X-Ray this morning. D/C to swingbed on Thursday.
--- NOTE | 2017-01-25 17:54 | NUR ---
Significant Event: ORIENTED TO PERSON AND YEAR. SHOWERED AND WALKED 2 LAPS IN [place]ANG[place], VERY DROWSY IN AFTERNOON. LARGE BM. FREQUENT VOIDS PER URINAL + INCONT. VSS, TMAX 99.5, ROOM AIR. AMBULATES 1 ASSIST, GAITBELT, WALKER, NEEDING MORE VERBAL CUES TODAY. PRESENT AT BEDSIDE. ALARMS ON AT ALL TIMES. Follow up: DC TO [facility] THURSDAY
--- NOTE | 2017-01-26 05:27 | NUR ---
Significant Event: Patient disoriented to time and place. Vital signs stable. On . Slept well most of the night. Not as restless this shift. at bedside. Up with 1 assist, walker, and gaitbelt. Ambulated halls x1. No complaints of pain. Calm and cooperative with all cares. Follow up: To swingbed on Thursday.
[2017-01-26 07:33] LABS: ALBUMIN 1.8 gm/dL (3.5-5.0); ANION GAP 11.8 (10.0-19.0); CALCIUM 9.3 mg/dL (8.5-10.5); CREATININE 1.8 mg/dL (0.6-1.3); PHOSPHORUS 1.8 mg/dL (2.5-4.9); POTASSIUM 3.8 mMol/L (3.7-5.1)
--- NOTE | 2017-01-26 14:35 | NUR ---
Significant Event: A/Ox3. SBP-100s. P-80-90s. SR. Afebrile. Room air. Lungs clear/diminished and diminished in the RLL and RML. Denies SOB. Up with 1A/walker. Inc of urine at times. Meds crushed with apple sauce. Possible discharge tomorrow to [facility].
--- NOTE | 2017-01-27 04:45 | NUR ---
Significant Event: Patient alert and oriented x2. Disoriented to time. Patient less confused this shift. states patient is "more like himself." SBP 94-103. All other vital signs stable. On RA. PIV saline locked. Up with 1 assist and gaitbelt. Walked the halls x2 this shift. continues at bedside. Pleasant and cooperative with all cares. Follow up: D/C to swingbed today.
[2017-01-27 06:32] LABS: BASOPHIL % 0.3 %; EOSINOPHIL # 0.2 K/uL (0.0-0.5); EOSINOPHIL % 1.4 %; HEMATOCRIT 30.1 % (33.0-50.0); HEMOGLOBIN 9.3 g/dL (11.0-16.0); IMMATURE GRANULOCYTE # 0.2 K/uL (0.0-0.3); IMMATURE GRANULOCYTE % 1.6 %; LYMPHOCYTE # 1.8 K/uL (0.8-4.0); LYMPHOCYTE % 15.1 %; MCH 25.8 pg (27.0-34.0); MCHC 30.9 gm/dL (32.0-36.5); MCV 83.6 fl (83.0-98.0); MONOCYTE # 1.1 K/uL (0.0-1.0); MONOCYTE % 9.4 %; MPV 9.3 fl (9.4-12.4); NEUTROPHIL # (ANC) 8.4 K/uL (1.4-9.0); NEUTROPHIL % 72.2 %; NRBC % 0 /100WBC (0-0.00); PLATELET COUNT 275 K/uL (150-450); RDW-CV 15.4 % (11.9-14.6); WBC 11.7 K/uL (4.0-11.0)
[2017-01-27 06:54] LABS: ANION GAP 12.8 (10.0-19.0); CALCIUM 9.3 mg/dL (8.5-10.5); CREATININE 1.7 mg/dL (0.6-1.3); POTASSIUM 3.8 mMol/L (3.7-5.1); TOTAL PROTEIN 6.8 g/dL (6.0-8.4)
[2017-01-27 06:56] LABS: ALBUMIN 1.7 gm/dL (3.5-5.0); TOTAL BILIRUBIN 0.3 mg/dL (0.0-1.5)
--- NOTE | 2017-01-27 12:10 | NUR ---
Patient discharging to [facility]. Talked with Chanelle, swingbed coordinator and faxed update and orders. She is going to call me back with phone number for Jamila Jacobs APRN to call their provider, needs to find out what provider for her to call. Talked with nurse, she will call report to charge nurse when pt leaves. Talked with , she is transporting, discussed anticipate short swingbed stay (1 week or so) before going home or out to [facility] self pay, she has contacted her agent to see what their local company [employer] care policy pays for.
--- NOTE | 2017-01-27 14:04 | NUR ---
D/C ORDERS TO [facility] RECIEVED. [facility]ET DONE AND SENT WITH THE PATIENT ON D/C. WILL CALL REPORT TO THE [facility] CHARGE NURSE PRIOR TO D/C. THE PATIENT WILL BE TRANSFERRED BY PRIVATE AUTO. VSS AND RA. DENIES PAIN.
--- NOTE | 2017-01-27 14:44 | NUR ---
D/C ORDERS TO THE [facility] RECIEVED. [facility] WAS SENT WITH THE PATIENT AND HIS SPOUSE ON D/C. SPOUSE TO TRANSPORT BY PRIVATE AUTO. PIV TO RT)FA WAS D/C'D AND CATHETER INTACT. REPORT WAS CALLED AND GIVEN TO THE [facility] [employer]SMISSION BU[employer]DER. VSLópez AND RA. DENIES PAIN. UP TO DATE ON VACCINES. TAKEN VIA W/C AND RETORT LOADER TO THE FRONT ENTRANCE OF THE HOSPITAL AND HIS SPOUSE TO DRIVE HIM TO THE [facility].
== END 2017-01-27 14:45 | disposition swing bed (61) | DRG 163 ==
LOC: GPCU 01-09 10:06
PROVIDERS: Nurse Practitioner Women's Health; ADMIT Thoracic Surgery (Cardiothoracic Vascular Surgery)
DX: J90 Pleural effusion, not elsewhere classified (principal); G93.41 Metabolic encephalopathy; N17.9 Acute kidney failure, unspecified; I42.9 Cardiomyopathy, unspecified; E83.52 Hypercalcemia; R13.10 Dysphagia, unspecified; Z87.898 Personal history of other specified conditions; I12.9 Hypertensive chronic kidney disease with stage 1 through stage 4 chronic kidney disease, or unspecified chronic kidney disease; N18.3 Chronic kidney disease, stage 3 (moderate)
CPT/HCPCS: G0237; G0424; J0630; J1644; J1956; J2270; J2405; J3370; J3489; J7030; J7040; J7050; P9045